=== PATIENT | female | born 1935 | race Caucasian/White ===

== ENCOUNTER 2016-11-29 10:09 | Emergency (ER) | payer MEDICARE, OTHER ==
[~2016-11-29] VITALS: Ht 160 cm; Wt 81.8 kg
[~2016-11-29 10:09] MED LIST: ACET1TAB12 PO; CALC-190 PO; CYAN100T PO; ESTR0.5T PO; FURO-129 PO; IBUP200C PO; METO25TA6 PO; OMEP20CA11 PO; OXYB15TA PO; POTASSIUM PO; Tylenol PO; VIT1CAPS8 PO
--- NOTE | 2016-11-29 10:09 | ED.REPORT ---
HPI-General Illness Date of Service Nov 29, 2016 ED Provider: Dr. Campos Pt is a generally healthy 81 y/o female presenting to the ED via EMS due to mechanical ground level fall which occurred prior to arrival. The patient's walker slipped out from under her and caused her to fall to the ground landing directly on her right knee onto a tile floor. The patient was able to ambulate upon EMS arrival. She is not anticoagulated and denies any other sites of injury. She does have a history of right knee replacement in 2011. Pt denies neck pain, CP, abdominal pain, vomiting, change in LOC, HILL, other extremity pain. Nursing Notes Stated Complaint: GROUND LEVEL FALL Nursing Notes Reviewed: Yes Allergies: Coded Allergies: No Known Allergies (Verified Allergy, Unknown, 09/03/15) Scheduled ([Potassium]) 10 MEQ PO DAILY ([Tylenol]) 500 MG PO prn Calcium Carb&Cit/Mag12/Vit D3 (Calcium 500 mg Tablet) 1 Each Tablet 1 EACH PO DAILY Cyanocobalamin (Vitamin B-12) (Vitamin B-12) 100 Mcg Tablet 100 MCG PO DAILY Estradiol (Estradiol) 0.5 Mg Tablet 0.5 MG PO DAILY Furosemide (Lasix) 20 Mg Tablet 20 MG PO DAILY please verify dosage & frequency Metoprolol Tartrate (Metoprolol Tartrate) 25 Mg Tablet 25 MG PO DAILY Omeprazole (Omeprazole) 20 Mg Capsule.dr 40 MG PO DAILY Oxybutynin Chloride ER (Oxybutynin Chloride ER) 15 Mg Tab.er.24 15 MG PO BID Vit C/Vit E/Lutein/Min/[place]-3 (Ocuvite Softgel) 1 Each Capsule 1 EACH PO DAILY Scheduled PRN Acetaminophen/Codeine 300-30mg (Tylenol/Codeine #3) 1 Each Tablet 1-2 TABLET PO Q4H PRN PRN Pain Ibuprofen (Ibuprofen) 200 Mg Capsule 600 MG PO BID PRN PRN For Pain General Time Seen by MD: 10:09 Chief Complaint Other (R knee injury) Hx Obtained From: Patient, EMS Arrived By: Ambulance Sudden in Onset?: Yes Onset Occurred: Just prior to arrival Symptom Duration: Since onset Caused by: Blunt trauma Location: : Knee right Quality: Painful Severity: Current: Moderate Severity: Maximum: Moderate Recent Healthcare: No recent hospitalization Similar Sx Previous: No Past Medical History Past Medical History Notes: PCP Dr. Alvarez Ortho: Dr. York Past Medical History Hypertension Hyperlipidemia Asthma GERD DJD Chronic back pain Past Surgical History Right knee replacement Hysterectomy Cystocele/rectocele repair RC repair Achilles tendon repair Hammertoe repair Smoking History Never Smoker Ambulatory Status Independent Review of Systems Full Review of Systems Constitutional: Denies: Fever Respiratory: Denies: Pleuritic pain, Shortness of breath Cardiovascular: Denies: Chest pain GI: Denies: Abdominal pain, Vomiting Female: Denies: Flank pain Musculoskeletal: Reports: Joint pain, Denies: Back pain, Neck pain Skin: Reports Bruising Neurologic: Denies: Change LOC, Confusion, Headache, Syncope Complete sys rev & neg: except as marked. Physical Exam Vital Signs Vital Signs Date Time Temp Pulse Resp B/P Pulse Ox O2 Delivery O2 Flow Rate FiO2 11/29/16 10:19 36.3 55 20 138/68 100 Room Air Initial VS: Reviewed General/Constitutional: Awake, Alert, No acute distress, Well appearing, Cooperative, Not toxic appearing Head / Eyes: Atraumatic, Normocephalic, PERRL, EOMI ENT: Atraumatic, Airway patent, Mucous membranes moist Neck: Atraumatic, Supple, No meningismus, Full range of motion, No swelling, Non-tender, No midline vertebral tend Respiratory / Chest: Breath sounds NL, Breath sounds = bilat, No respiratory distress, No rales, No rhonchi, No wheezing, No retractions, No stridor, No chest tenderness, No chest wall deformity Cardiovascular: Heart rate NL, Regular rhythm, Heart sounds NL, No murmurs, Peripheral circulation NL, Pulses = bilaterally Abdomen: Atraumatic, Soft, Non-tender, No guarding, No rebound, No distention, No palpable mass Back: Full range of motion, Painless range of motion, No midline vertebral tend Upper Extremities Upper Extremity / MS: Full range of motion, No swelling, Non-tender, No erythema, No deformity, Neurologic intact, Vascular intact, No ligamentous injury, Tendon function NL, No clubbing/cyanosis, No edema Lower Extremity / Pelvis / MS: No deformity, Neurologic intact, Vascular intact R knee: Medial knee and proximal tibial tenderness with bruising. 10 cm laceration obliquely across the medial knee with exposed subcutaneous fat Ankle / Foot: Atraumatic, Full range of motion, Non-tender, No deformity, Neurologic intact, Vascular intact Skin: No rash, Warm, Dry Neurologic: Oriented X3, Speech NL, No motor deficits, No sensory deficits, CN II - XII intact, Cerebellar NL, Memory NL Psychiatric: Affect NL, Mood NL Interpretation & Diagnostics X-Ray Interpretation Xray Interpretation: IMPRESSION: No visualized acute fracture or dislocation. However, if clinical concern and/or pain persist, short interval imaging followup in 7-10 days is recommended, as occult injury cannot be definitively excluded. Dictated by: Giselle Ceballos M.D. on 11/29/2016 at 10:56 Approved by: Giselle Ceballos M.D. on 11/29/2016 at 10:59 Study Performed: 2 views X-Ray Ordered: Tibia fibula right Interpretation / Wet Read by: Interpret - Radiologist Xray Interpretation: IMPRESSION: No visualized acute fracture or dislocation. However, if clinical concern and/or pain persist, short interval imaging followup in 7-10 days is recommended, as occult injury cannot be definitively excluded. Dictated by: Giselle Ceballos M.D. on 11/29/2016 at 10:59 Approved by: Giselle Ceballos M.D. on 11/29/2016 at 10:59 Study Performed: 3 views X-Ray Ordered: Knee right Interpretation / Wet Read by: Interpret - Radiologist Procedures Laceration Management Laceration Management: Right knee laceration Time: 12:24 Procedure Performed by: Allied health pract (Jonathon LANZA) Consent / Setup / Site Prep: Consent from patient, Hand hygiene observed, Stand sterile technique Wound Length: 8 cm Local Anesthesia: Lidocaine w epi 1%, 5cc, 27g needle Wound Preparation: Shurclens, Normal saline Irrigation: Copious Foreign Body Explore / Removal: Explored for foreign body # Sutures - Skin: 11 Repair Subcutaneous: Nylon (4-o) Closure Layers: 1 Suture Technique: Mattress Post-Procedure / Complications: Antibiotic oint applied, Dressing applied, No complications, Condition improved, Tolerated procedure well, Patient stable Re-Eval/Medical Decision Source of Hx: Old records, EMS Time of Eval: 11:04 Re-Evaluation/Progress Note: Pt rechecked. Remains comfortable. Discussed negative imaging findings and plan to have the MYLA repair the laceration. Counseled Regarding: Diagnosis, Lab results, Need for follow-up, When/why to return to ED Discharge & Departure Primary Impression: Fall from ground level Additional Impression: Laceration of right knee Encounter type: initial encounter Qualified Code: S81.011A - Laceration without foreign body, right knee, initial encounter Disposition: Home Discharge Condition All VS Reviewed: Yes Condition: Stable Patient Instructions: Laceration (ED) Additional Instructions: The x-rays of your knee and lower leg today showed no signs of fracture or dislocation. The laceration was repaired today with sutures. These will need to be removed at either your primary care office or back in the ED in 10-14 days. Do not submerge the wound for 24 hours. Afterwards keep clean and dry and covered with antibiotic ointment. Use the knee immobilizer as tolerated for activities. Return to the emergency department if you experience signs of infection: redness , swelling, pain, discharge of pus, fever, or for other concerning symptoms. Follow-up with your primary care doctor in 1 week for a recheck. Referrals: Valentín Alvarez MD (PCP) Scribe Attestation Portions of this note were transcribed by Santiago Lange. I, Dr. Campos personally performed the history, physical exam and medical decision-making; I reviewed and confirmed the accuracy of the information in the transcribed note. copies to: Valentín Alvarez MD, Timothy S DO Nov 29, 2016 10:09 SANTIAGO LANGE Nov 29, 2016 10:16 Yaron Holt PA-C Nov 29, 2016 12:25
[2016-11-29 10:19] VITALS: BP 138/68; PULSE 55; RESP 20; O2SAT 100
[2016-11-29] MEDS ORDERED: Lidocaine-Epi-Tetracaine Solution 3 mL Syringe TOPICAL ONE (10:20)
[2016-11-29] MEDS ORDERED: TdaP Vaccine 0.5 mL Inj IM ONE (10:20)
--- NOTE | 2016-11-29 11:00 | DRSVH ---
PROCEDURE: X-RAY RIGHT TIBIA/FIBULA, TWO VIEWS ([id number]) INDICATIONS: fall, knee, prox tibia pain TECHNIQUE: 2 views of the tibia and fibula were acquired. COMPARISON: None. FINDINGS: Bones: No fractures or dislocations. No suspicious bony lesions. Right knee arthroplasty. Soft tissues: No suspicious soft tissue calcifications or masses. IMPRESSION: No visualized acute fracture or dislocation. However, if clinical concern and/or pain pe rsist, short interval imaging followup in 7-10 days is recommended, as occult injury cannot be defini tively excluded. Dictated by: Giselle Ceballos M.D. on 11/29/2016 at 10:56 Approved by: Giselle Ceballos M.D. on 11/29/2016 at 10:59
--- NOTE | 2016-11-29 11:01 | DRSVH ---
PROCEDURE: X-RAY RIGHT KNEE, THREE VIEWS ([id number]) INDICATIONS: fall, knee, proximal tibia pain TECHNIQUE: 3 views of the knee were acquired. COMPARISON: None. FINDINGS: Bones: No fractures or dislocations. No suspicious bony lesions. Right knee arthroplasty. Soft tissues: No joint effusion. No suspicious soft tissue calcifications. IMPRESSION: No visualized acute fracture or dislocation. However, if clinical concern and/or pain pe rsist, short interval imaging followup in 7-10 days is recommended, as occult injury cannot be defini tively excluded. Dictated by: Giselle Ceballos M.D. on 11/29/2016 at 10:59 Approved by: Giselle Ceballos M.D. on 11/29/2016 at 10:59
[2016-11-29 13:00] VITALS: BP 140/72; PULSE 59; RESP 20; O2SAT 96
== END 2016-11-29 13:00 | disposition home or self-care (01) ==
LOC: SED 10:09
DX: S81.011A Laceration without foreign body, right knee, initial encounter (principal); W01.0XXA Fall on same level from slipping, tripping and stumbling without subsequent striking against object, initial encounter; Y93.89 Activity, other specified; Y92.009 Unspecified place in unspecified non-institutional (private) residence as the place of occurrence of the external cause; Y99.8 Other external cause status; I10 Essential (primary) hypertension; E78.5 Hyperlipidemia, unspecified; K21.9 Gastro-esophageal reflux disease without esophagitis; M19.90 Unspecified osteoarthritis, unspecified site; Z96.651 Presence of right artificial knee joint